=== PATIENT | female | born 1985 | race Two or more races ===

== ENCOUNTER 2024-08-03 07:28 | Emergency (ER) | payer MEDICARE, MEDICAID, SELFPAY ==
[2024-08-03 07:29] VITALS: BMI 39.3
[2024-08-03 07:38] VITALS: BP 136/82; PULSE 99; RESP 19; TEMP 36.7; O2SAT 99; BMI 38.4
--- NOTE | 2024-08-03 07:42 | XR_ITS ---
Examination: Lumbar spine 3 views Technique one AP lateral coned lateral lower lumbar spine 3 views Exam date and time: August 03, 2024 0937 hrs. Indications: Lower back pain one week. Findings: Adequate alignment lumbar vertebral bodies No lumbar fracture Minimal disc narrowing L4-L5 No spondylolisthesis Impression: Minimal disc narrowing L4-L5
--- NOTE | 2024-08-03 08:17 | EDNOTE_ITS ---
ED Abdominal Pain RME/HPI General Chief Complaint: Abdominal Pain Stated complaint: LOWER BACK PAIN RADIATING DOWN WITH FREQUENT URINA Time seen by provider: 08/03/24 07:29 Arrival date/time: 08/03/24 07:28 39-year-old female presents to the emergency department with complaints of lumbar lower back pain worsening over 3 days. Does report history of a fracture of her lumbar spine approximately 9 years ago. Patient is requesting a pain shot has not followed up with PCP regarding lower back pain issue. States she has been having pain for the last 3 days however also complaining of mild dysuria and increased urinary frequency. Limitations: no limitations Related Data Previous Rx's ?Medication ?Instructions ?Recorded albuterol sulfate 90 mcg/actuation 2 puff inhalation QID #18 grams 06/30/20 aerosol inhaler azithromycin 250 mg tablet See Rx Instructions PO .COMPLEX #6 06/30/20 tabs promethazine 6.25 mg-codeine 10 5 ml PO Q6H #120 mL 06/30/20 mg/5 mL syrup naproxen 500 mg tablet (Naprosyn) 500 mg PO BID #30 tabs 01/06/22 ondansetron HCl 4 mg tablet 4 mg PO BID PRN nausea and 01/06/22 vomiting #20 tabs azelastine 137 mcg (0.1 %) nasal 2 spray intranasal QDAY #30 mL 02/26/22 spray acetaminophen 500 mg tablet 1,000 mg (2 x 500 mg) PO Q6H PRN 10/24/22 (Tylenol Extra Strength) fever or pain #30 tabs ondansetron HCl 4 mg tablet 4 mg PO TID PRN nausea and 10/24/22 vomiting #14 tabs ibuprofen 600 mg tablet 600 mg PO TID PRN pain #10 tabs 11/23/22 ondansetron 4 mg disintegrating 4 mg PO Q8H PRN nausea and 02/08/24 tablet vomiting #30 tabs gabapentin 100 mg capsule 100 mg PO TID PRN nerve pain #20 08/03/24 caps gabapentin 100 mg capsule 100 mg PO TID PRN nerve pain #20 08/03/24 caps naproxen 500 mg tablet (Naprosyn) 500 mg PO BID PRN pain #20 tabs 08/03/24 naproxen 500 mg tablet,delayed 500 mg PO BID PRN pain #20 tabs 08/03/24 release Allergies Allergy/AdvReac Type Severity Reaction Status Date / Time Penicillins Allergy Severe Hives Verified 08/03/24 07:31 Review of Systems Review of Systems Systems Reviewed: All systems reviewed, normal except as documented Narrative Review of Systems: Gen: No fever, no chills, no weight loss EYES: No discharge, no visual changes, no pain HEENT: No ear pain, no congestion, no sore throat PULM: No shortness of breath, no cough, no congestion CV: No chest pain, no dyspnea on exertion, no palpitations GI: No nausea, no vomiting, no diarrhea, no pain, no constipation : + frequency, no urgency,? +dysuria Musc/skel: No joint pain, +lumbar back pain Skin: No rash? Psyc: No hallucinations, no depression Heme/Lymph: No easy bleeding or bruising tendencies Neuro: No weakness, no headache ED Exam General Limitations: Present no limitations General appearance: Present alert and in no apparent distress Head Head exam: Present atraumatic Eye Eye exam: Present normal appearance, PERRL and EOMI ENT ENT exam: Present normal exam, normal oropharynx and mucous membranes moist Neck Neck exam: Present normal inspection, full ROM and trachea midline Chest Chest inspection: Present normal inspection and symmetric chest wall rise Respiratory Respiratory exam: Present normal lung sounds bilaterally Cardiovascular Cardiovascular exam: Present regular rate, normal rhythm and normal heart sounds Abdominal Exam Abdominal exam: Present soft and normal bowel sounds Extremities Exam Extremities exam: Present normal inspection and full ROM Back Exam Back exam: Present normal inspection and full ROM Neurological Exam Neurological exam: Present alert, oriented X3 and CN II-XII intact Psychiatric Psychiatric exam: Present normal affect and normal mood Skin Skin exam: Present warm, dry, intact and normal color Course Quality Measures none Orders Category Date Time Status XR lumbar spine 2-3V Stat Exams 08/03/24 07:42 Completed HCG Qualitative,Urine Stat Lab 08/03/24 07:53 Completed Urinalysis Stat Lab 08/03/24 07:53 Completed Urine Culture Stat Lab 08/03/24 07:53 Received Ketorolac Inj [Toradol Inj] Med 08/03/24 09:31 Discontinued 60 mg IM X1 ONE Vital Signs Vital signs: Vital Signs Temperature 98.1 F 08/03/24 07:38 Pulse Rate 99 08/03/24 07:38 Respiratory Rate 19 08/03/24 07:38 Blood Pressure 136/82 H 08/03/24 07:38 Pulse Oximetry (%) 99 08/03/24 07:38 Oxygen Delivery Method Room Air 08/03/24 07:38 Abdominal Pain MDM MDM Narrative MDM Narrative:: 39-year-old female presents to the emergency department with complaints of lumbar lower back pain worsening over 3 days. Does report history of a fracture of her lumbar spine approximately 9 years ago. Patient is requesting a pain shot has not followed up with PCP regarding lower back pain issue. States she has been having pain for the last 3 days however also complaining of mild dysuria and increased urinary frequency. Pain medication provided for patient x-ray demonstrates some degenerative disc disease from L5-S1 No fever, weakness, abdominal pain, saddle anesthesia, bowel/bladder incon tinence noted. No hx of IVDA. Gait and sensation intact. No signs of emergent pathology at this time. Low suspicion for emergent etiology such as epidural abscess or spinal cord compression/cauda equina. urinalysis was negative for any pyuria. Advised patient this is a chronic issue for 10 years she should follow-up with her PCP for outpatient MRI and physical therapy which she has had in the past. Patient data External records reviewed:: [facility] previous records Clinical information provided by:: patient Social determinants that could affect healthcare access:: none Patient has the following chronic illnesses:: no How is presenting disease/condition affected by chronic disease/condition?: no chronic disease Evaluation data The following diagnostics were reviewed and interpreted by me:: lab results and radiology exam(s) Lab and/or radiology exams considered but not ordered:: no Interpretation Summary: Exam date and time: August 03, 2024 0937 hrs. Indications: Lower back pain one week. Findings: Adequate alignment lumbar vertebral bodies No lumbar fracture Minimal disc narrowing L4-L5 No spondylolisthesis Impression: Minimal disc narrowing L4-L5 Medications / Prescriptions Medications or Prescriptions considered but not ordered:: no Medication administrations:: Medication Administration History Discontinued Medications Ketorolac Tromethamine (Ketorolac Inj 60 Mg/2 Ml Vial) 60 mg IM X1 ONE Stop: 08/03/24 09:32 Last Admin: 08/03/24 09:44 Dose: 60 mg Documented By: GM All medications administered and effective Consultations Consultation(s) initiated? (list below): No Diagnosis Differential diagnosis abdominal pain: abdominal pain, constipation, gastroenteritis and other (UTI, Lumbar Degenerative disk ) Most likely diagnosis given after review of the tests above:: Lumbar Degenerative disk , chronic back pain Admission Indicated Admission indicated?: not indicated Admission Request Was there a request for admission?: No Disposition Plan Disposition Plan: Discharge Discharge Attestation Discharge Attestation: The patient and all family members were given an opportunity to ask questions and understood the discharge instructions. Discharge instructions specifically effects, indications for sooner follow up or return to the emergency department, and the expected course of current diagnosis. Patient condition: Stable Discharge Plan Plan Patient Disposition: HOME (Self Care) Patient condition on transfer: Stable Prescriptions/Referrals Prescriptions/Med Rec: New naproxen 500 mg tablet,delayed release (DR/EC) 500 mg PO BID PRN (Reason: pain) Qty: 20 0RF gabapentin 100 mg capsule 100 mg PO TID PRN (Reason: nerve pain ) Qty: 20 0RF gabapentin 100 mg capsule 100 mg PO TID PRN (Reason: nerve pain) Qty: 20 0RF naproxen [Naprosyn] 500 mg tablet 500 mg PO BID PRN (Reason: pain) Qty: 20 0RF No Action naproxen [Naprosyn] 500 mg tablet 500 mg PO BID Qty: 30 0RF ondansetron HCl 4 mg tablet 4 mg PO BID PRN (Reason: nausea and vomiting) Qty: 20 0RF azelastine 137 mcg (0.1 %) aerosol,spray 2 spray intranasal QDAY Qty: 30 0RF Rx Instructions: administer into each nostril azithromycin 250 mg tablet See Rx Instructions .ROUTE .COMPLEX Qty: 6 0RF Rx Instructions: take 500 mg today (day 1), then 250 mg for 4 days (days 2-5) albuterol sulfate 90 mcg/actuation HFA aerosol inhaler 2 puff inhalation QID Qty: 18 0RF promethazine-codeine 6.25-10 mg/5 mL syrup 5 ml PO Q6H Qty: 120 0RF acetaminophen [Tylenol Extra Strength] 500 mg tablet 1,000 mg PO Q6H PRN (Reason: fever or pain) Qty: 30 0RF ondansetron HCl 4 mg tablet 4 mg PO TID PRN (Reason: nausea and vomiting) Qty: 14 0RF ibuprofen 600 mg tablet 600 mg PO TID PRN (Reason: pain) Qty: 10 0RF ondansetron 4 mg tablet,disintegrating 4 mg PO Q8H PRN (Reason: nausea and vomiting) Qty: 30 0RF Referrals: Vickie Rosen PA-C [Primary Care Provider] - In 1 week Problem List Clinical Impression: Lumbar back pain Patient/Caregiver Discharge Instructions Discharge Activity: activity as tolerated Education Materials: ED Back Pain (Acute or Chronic) Additional Instructions: -Your urinalysis is normal -You will need to rest and have activities modification avoid heavy lifting twisting motions or prolonged sitting or standing. -Will need to follow-up with your doctor in 2 to 3 days for follow-up care Might need physical therapy Might need referral for MRI outpatient, Diagnostic imaging (like MRI) might be used to assess the extent of the bulging disc, particularly if symptoms worsen or persist. -Medications sent please use as directed Can include ibuprofen, gabapentin Lifestyle modifications weight reduction Return to the emergency department this any worsening symptoms change in condition. Print Language: Lithuanian Stand Alone Forms: Irish Award Info., Patient Portal Info Letter Attestation Attestation The patient was seen by the midlevel practitioner. I, the co-signing physician, was present during the entire ER visit. While I did not physically examine the patient, I was available for consultation as needed.
[2024-08-03 09:00] LABS: Collection Type, Urine Clean Catch
[2024-08-03 09:11] LABS: Bilirubin,Urine Negative (Negative); Blood,Urine Negative (Negative); Clarity,Urine Clear (Clear/Hazy); Color,Urine Lt-Yellow (Lt Yel-Yel); Glucose, Urine Negative (Negative); Ketones,Urine Negative (Negative); Leukocyte Esterase,Urine Negative (Negative); Nitrite,Urine Negative (Negative); PH,Urine 5.5 (5.0-7.0); Protein,Urine Negative (Neg - Trace); RBC,Urine < 1 /hpf (0-3); Squamous Epithelial Cell,Urine 1 /hpf (0-5); Urobilinogen,Urine Negative mg/dL (0.0-1.0); WBC,Urine 1 /hpf (0-5)
[2024-08-03 09:12] LABS: HCG Qualitative,Urine Negative
[2024-08-03] MEDS: KETOROLAC INJ 60 MG/2 ML VIAL IM (09:44)
[2024-08-03 09:48] VITALS: BP 119/84; PULSE 90; RESP 17; TEMP 37.1; O2SAT 95
[2024-08-03 11:18] VITALS: BP 137/91; PULSE 93; RESP 17; TEMP 37; O2SAT 99
== END 2024-08-03 11:18 | disposition home or self-care (01) ==
PROVIDERS: Nurse Practitioner Primary Care; Emergency Provider Emergency Medicine; PCP Physician Assistant
DX: M48.061 Spinal stenosis, lumbar region without neurogenic claudication (principal)
CPT/HCPCS: 72100; 81001; 81025; 87086; 96372; 99283; J1885

== ENCOUNTER 2024-12-14 18:55 | Emergency (ER) | payer MEDICARE, SELFPAY ==
[2024-12-14 18:56] VITALS: BMI 39.9
--- NOTE | 2024-12-14 19:00 | EKG_ITS ---
[facility] Test Date: 2024-12-14 Pat Name: BEATRIZ OLGUIN Department: Room: - Gender: Female Assistant Foreman: : 1985 Requested By: ED Temporary Provider Order Number: [id number] Reading MD: ED Temporary Provider Measurements Intervals [place] Rate: 101 P: 40 NH: 124 QRS: 84 QRSD: 100 T: 55 QT: 324 QTc: 420 Interpretive Statements SINUS TACHYCARDIA ABNORMAL RHYTHM ECG Compared to ECG 04/07/2024 15:02:12 No significant changes /store/S0/[id number].pdf
[2024-12-14 19:14] VITALS: BP 123/83; PULSE 86; RESP 18; TEMP 37.1; O2SAT 96
--- NOTE | 2024-12-14 19:16 | XR_ITS ---
Examination: PA lateral chest 2 views Technique: Upright PA lateral chest 2 views Exam date and time: December 14, 20242 hrs. Indications: Chest pain beginning 3 days ago. Findings: Normal heart size Mild opacity left base Intact osseous structures Impression: Mild left base pneumonia
--- NOTE | 2024-12-14 19:17 | PD.EDRME ---
Rapid Medical Screening Exam E Arrival date/time: 12/14/24 18:55 39 yo f present to ED for c/o chest pain for 3 days I have greeted and performed a focused initial assessment of this patient. A comprehensive ED assessment and evaluation of the patient, analysis of all test results, and completion of the medical decision making process will be conducted by additional ED providers. Chief Complaint: Chest Pain Time Seen by Provider: 12/14/24 18:58 Vital signs: Vital Signs Temperature 98.8 F 12/14/24 19:14 Pulse Rate 86 12/14/24 19:14 Respiratory Rate 18 12/14/24 19:14 Blood Pressure 123/83 12/14/24 19:14 Pulse Oximetry (%) 96 12/14/24 19:14 Oxygen Delivery Method Room Air 12/14/24 19:14
[2024-12-14 19:38] LABS: Basophils % (Auto) 1 % (0-2.5); Eosinophils # (Auto) 0.1 Thou/mm3 (0.0-0.5); Eosinophils % (Auto) 2 % (0-10); Hematocrit 41.2 % (36.0-46.0); Hemoglobin 13.7 g/dL (12.0-16.0); Immature Granulocytes % (Auto) 0 % (0-0); Immature Granulocytes Auto 0.01 Thou/mm3 (0.00-0.00); Lymphocytes # (Auto) 2.3 Thou/mm3 (1.0-4.8); Lymphocytes % (Auto) 33 % (10-50); Mean Corpuscular HGB Conc 33.3 g/dl (31.0-37.0); Mean Corpuscular Hemoglobin 28.7 pg (25.0-35.0); Mean Corpuscular Volume 86 fL (80-100); Monocytes # (Auto) 0.6 Thou/mm3 (0.0-0.8); Monocytes % (Auto) 9 % (0-12); Neutrophils % (Auto) 56 % (37-80); Nucleated Red Blood Cell % 0 /100 WBC (0); Platelet Count 271 Thou/mm3 (140-440); RDW Standard Deviation 39.9 fL (36.4-46.3); Red Blood Count 4.78 Miln/mm3 (4.00-5.20); White Blood Count 7.1 Thou/mm3 (3.6-11.0)
[2024-12-14 20:03] LABS: HCG,Qualitative Serum Negative
[2024-12-14 20:11] LABS: Alanine Aminotransferase 11 U/L (10-49); Albumin, Serum 4.5 gm/dL (3.5-5.0); Albumin/Globulin Ratio 1.3 (1.2-2.2); Alkaline Phosphatase 65 U/L (46-116); Anion Gap 7 (7-16); Aspartate Amino Transferase 15 U/L (0-34); BUN/Creatinine Ratio 13 Ratio (12-20); Bilirubin,Total 0.3 mg/dL (0.3-1.2); Blood Urea Nitrogen 10 mg/dL (9-23); Calcium 9.4 mg/dL (8.3-10.6); Calcium (Corrected) 9.4 mg/dL (8.5-10.1); Carbon Dioxide 29.3 mMol/L (20.0-31.0); Chloride 105 mMol/L (98-107); Creatinine (Component) 0.8 mg/dL (0.6-1.3); Estimated Creatinine Clearance 103.8 mL/min (>60); Globulin 3.5 gm/dL (2.3-3.5); Glucose 124 mg/dL (74-106); Lipase 43 U/L (12-53); Osmolality,Calculated 281 (275-295); Sodium 141 mMol/L (136-145); Troponin I < 0.002 ng/mL (0.0-0.045); eGFR > 60 See Note
--- NOTE | 2024-12-14 21:35 | PRELIM_ITS ---
Radiographs of the chest (2 views). December 14, 2024 at 2031 hours Clinical history: Chest pain Comparison: No prior study is available for comparison. Findings: The heart, mediastinum and pulmonary fredis are unremarkable. Left basal consolidation. There is no pleural effusion. The bony thorax is unremarkable. No pneumothorax. Impression: Left basal pneumonia. Report Electronically Signed By: Hossein Bray 12/14/2024 9:34:48 PM [EST]
--- NOTE | 2024-12-14 22:01 | PD.EDSOB ---
ED SOB =RME/HPI General Chief Complaint: Chest Pain Stated Complaint: CHEST PAIN DOWN L) ARM X 2 DAYS, DYSPNEA Time Seen by Provider: 12/14/24 18:58 Arrival date/time: 12/14/24 18:55 39 year old female present to emergency room with c/o of chest pain, shortness of breath for 2-3 days LOCATION: Chest SEVERITY: Symptoms are described as being severe with limitations on activities of daily living CONTEXT: The patient is unable to identify any inciting events. DURATION/TIMING: The symptoms started approximately [one day] ago and have been constant since and have been progressive getting worse. ASSOCIATED SYMPTOMS: The patient is unable to identify any other associated symptoms. MODIFYING FACTORS: The patient is unable to identify any alleviating or aggravating symptoms. PERTINENT ROS: no fevers, no cough, no pleuritic pain, no ripping or tearing sensations, denies any lower extremity edema and no unilateral swelling, no nausea,vomiting, diarrhea, no dizziness/headache no rash no loc/syncope episode no abd/back pain no dsyuria,urgency,frequency REVIEW OF SYSTEMS: See History of Present Illness - with the exception of those mentioned in the history of present illness, all other systems reviewed and reported as negative GENERAL: In general the patient is awake, interactive, in an emergency department gurney. HEAD/EYES/EARS/NOSE/THROAT: normo-cephalic, atraumatic, mucus membranes are moist, anicteric, palpebral conjunctiva is pink, trachea is midline. CARDIOVASCULAR: regular rate and regular rhythm, no murmurs, heart sounds are not distant, strong pulses in all four extremities that are equal and symmetric bilateral upper and lower extremities, normal capillary refill. CHEST/PULMONARY: normal chest rise and fall, good air movement, clear to auscultation bilaterally, normal inspiratory to expiratory ratios without evidence of respiratory distress. NECK: No midline/Paraspinal tenderness, no step off ROM/Strenght intact No Kernig and bruzinski sign. No trauma ABDOMEN: soft, not tender, no masses appreciated BACK: normal range of motion without pain. NEUROLOGICAL: cranio-facial features are symmetric, moves all four extremities equally without obvious limitations or weakness. EXTREMITY: no tenderness to palpation over the long bones or large joints of the bilateral upper and lower extremities, no joint swelling, no joint erythema, no signs of trauma, no unilateral leg swelling and no peripheral edema. SKIN: warm, dry, well-perfused, no jaundice, no rash, no telangiectasias or petechia. PSYCH: calm, cooperative, no evidence of psychosis or agitation RME / HPI RME / HPI Narrative: 12/14/24 18:55 39 yo f present to ED for c/o chest pain for 3 days I have greeted and performed a focused initial assessment of this patient. A comprehensive ED assessment and evaluation of the patient, analysis of all test results, and completion of the medical decision making process will be conducted by additional ED providers. Related Data Previous Rx's ?Medication ?Instructions ?Recorded albuterol sulfate 90 mcg/actuation 2 puff inhalation QID #18 grams 06/30/20 aerosol inhaler azithromycin 250 mg tablet See Rx Instructions PO .COMPLEX #6 06/30/20 tabs promethazine 6.25 mg-codeine 10 5 ml PO Q6H #120 mL 06/30/20 mg/5 mL syrup naproxen 500 mg tablet (Naprosyn) 500 mg PO BID #30 tabs 01/06/22 ondansetron HCl 4 mg tablet 4 mg PO BID PRN nausea and 01/06/22 vomiting #20 tabs azelastine 137 mcg (0.1 %) nasal 2 spray intranasal QDAY #30 mL 02/26/22 spray acetaminophen 500 mg tablet 1,000 mg (2 x 500 mg) PO Q6H PRN 10/24/22 (Tylenol Extra Strength) fever or pain #30 tabs ondansetron HCl 4 mg tablet 4 mg PO TID PRN nausea and 10/24/22 vomiting #14 tabs ibuprofen 600 mg tablet 600 mg PO TID PRN pain #10 tabs 11/23/22 ondansetron 4 mg disintegrating 4 mg PO Q8H PRN nausea and 02/08/24 tablet vomiting #30 tabs gabapentin 100 mg capsule 100 mg PO TID PRN nerve pain #20 08/03/24 caps gabapentin 100 mg capsule 100 mg PO TID PRN nerve pain #20 08/03/24 caps naproxen 500 mg tablet (Naprosyn) 500 mg PO BID PRN pain #20 tabs 08/03/24 naproxen 500 mg tablet,delayed 500 mg PO BID PRN pain #20 tabs 08/03/24 release azithromycin 500 mg tablet 500 mg PO QDAY 3 days #3 tabs 12/14/24 Allergies Allergy/AdvReac Type Severity Reaction Status Date / Time Penicillins Allergy Severe Hives Verified 12/14/24 18:58 Course Course Course Narrative: Patient presenting with cough and fever.? VS were reviewed and showed wnl .? ?Lung exam noted to have clear .? Obtained and reviewed CXR, which showed + pna .? ?At this time, it is felt that the most likely explanation for the patient's symptoms is pneumonia.? I also considered URI, bronchitis, pneumonia, pneumothorax, PE, but this appears less likely considering the data gathered thus far.? Patient was provided azithromycin while in the ED.? .? Supportive treatment options were discussed.? Patient to follow up with PCP closely.?? Impression:?? Community acquired pneumonia Plan:? Prescribed azithromycin 500mg daily for 3 days? Advised Pt on supportive measures, including smoking cessation and avoidance of second-hand smoke, OTC acetaminophen or ibuprofen for fever and body aches, advancement of fluids as tolerated, rest, and frequent hand-washing w/ soap and water. Instructed Pt to monitor for shaking chills or T>100.5degF, persistent cough >7-10d, hemoptysis, delirium or confusion, cyanosis, and respiratory distress.? Instructed Pt to f/up w/ PCP or ETC should Sx worsen or not improve.? Quality Measures none Orders Category Date Time Status EKG (ED ONLY) *Do not use* NOW Care 12/14/24 19:00 Completed EKG (ED Only) Stat Exams 12/14/24 19:00 Draft XR chest 2V Stat Exams 12/14/24 19:16 Taken CBC Stat Lab 12/14/24 19:27 Completed CMP [Comprehensive Metabolic Panel] Stat Lab 12/14/24 19:27 Completed HCG,Qualitative Serum Stat Lab 12/14/24 19:27 Completed Lipase Stat Lab 12/14/24 19:27 Completed Troponin I Stat Lab 12/14/24 19:27 Completed Azithromycin Po [Zithromax PO] Med 12/14/24 21:59 Discontinued 500 mg PO X1 ONE Ibuprofen Tab [Motrin Tab] Med 12/14/24 22:06 Once 800 mg PO X1 ONE Vital Signs Vital signs: Vital Signs Temperature 98.8 F 12/14/24 19:14 Pulse Rate 86 12/14/24 19:14 Respiratory Rate 18 12/14/24 19:14 Blood Pressure 123/83 12/14/24 19:14 Pulse Oximetry (%) 96 12/14/24 19:14 Oxygen Delivery Method Room Air 12/14/24 19:14 Procedures -ED EKG Interpretation #1: Date of EK12/14/24 Rate: 101 Interpretation: Reviewed by me EKG Impression: No acute ST-T changes, No ectopy, No ischemic changes and Sinus tachycardia Shortness of Breath / Dyspnea Patient data External records reviewed:: [facility] previous records Clinical information provided by:: patient Social determinants that could affect healthcare access:: none Patient has the following chronic illnesses:: n/a How is presenting disease/condition affected by chronic disease/condition?: no chronic disease Evaluation data The following diagnostics were reviewed and interpreted by me:: lab results, radiology exam(s) and EKG tracing(s) Lab and/or radiology exams considered but not ordered:: n/a Interpretation Summary: xray: pna cbc/cmp trop wnl Medications / Prescriptions Medications or Prescriptions considered but not ordered:: n/a Medication administrations:: Medication Administration History Ibuprofen (Ibuprofen Tab 400 Mg Tablet) 800 mg PO X1 ONE Stop: 12/14/24 22:07 Discontinued Medications Azithromycin (Azithromycin 250 Mg Tablet) 500 mg PO X1 ONE Stop: 12/14/24 22:00 Last Admin: 12/14/24 22:04 Dose: 500 mg Documented By: KG as stated above Consultations Consultation(s) initiated? (list below): No Diagnosis Shortness of Breath Differential Diagnosis: acute exacerbation of chronic obstructive airways disease, congestive heart failure, community acquired pneumonia, asthma with exacerbation and other (anxiety, mi/nstemi ) Most likely diagnosis given after review of the tests above:: pna Admission Indicated Admission indicated?: not indicated Admission Request Was there a request for admission?: No Disposition Plan Disposition Plan: Discharge Discharge Attestation Discharge Attestation: The patient and all family members were given an opportunity to ask questions and understood the discharge instructions. Discharge instructions specifically effects, indications for sooner follow up or return to the emergency department, and the expected course of current diagnosis. Patient condition: Stable Discharge Plan Plan Patient Disposition: HOME (Self Care) Health Concerns: Follow with PMD as directed Take tylenol or motrin as need Return to ED if sx worsen Prescriptions/Referrals Prescriptions/Med Rec: New azithromycin 500 mg tablet 500 mg PO QDAY 3 Days Qty: 3 0RF No Action naproxen [Naprosyn] 500 mg tablet 500 mg PO BID Qty: 30 0RF ondansetron HCl 4 mg tablet 4 mg PO BID PRN (Reason: nausea and vomiting) Qty: 20 0RF azelastine 137 mcg (0.1 %) aerosol,spray 2 spray intranasal QDAY Qty: 30 0RF Rx Instructions: administer into each nostril azithromycin 250 mg tablet See Rx Instructions .ROUTE .COMPLEX Qty: 6 0RF Rx Instructions: take 500 mg today (day 1), then 250 mg for 4 days (days 2-5) albuterol sulfate 90 mcg/actuation HFA aerosol inhaler 2 puff inhalation QID Qty: 18 0RF promethazine-codeine 6.25-10 mg/5 mL syrup 5 ml PO Q6H Qty: 120 0RF naproxen 500 mg tablet,delayed release (DR/EC) 500 mg PO BID PRN (Reason: pain) Qty: 20 0RF gabapentin 100 mg capsule 100 mg PO TID PRN (Reason: nerve pain ) Qty: 20 0RF gabapentin 100 mg capsule 100 mg PO TID PRN (Reason: nerve pain) Qty: 20 0RF naproxen [Naprosyn] 500 mg tablet 500 mg PO BID PRN (Reason: pain) Qty: 20 0RF acetaminophen [Tylenol Extra Strength] 500 mg tablet 1,000 mg PO Q6H PRN (Reason: fever or pain) Qty: 30 0RF ondansetron HCl 4 mg tablet 4 mg PO TID PRN (Reason: nausea and vomiting) Qty: 14 0RF ibuprofen 600 mg tablet 600 mg PO TID PRN (Reason: pain) Qty: 10 0RF ondansetron 4 mg tablet,disintegrating 4 mg PO Q8H PRN (Reason: nausea and vomiting) Qty: 30 0RF Referrals: Vickie Rosen PA-C [Primary Care Provider] - In 1 week Problem List Clinical Impression: Pneumonia Patient/Caregiver Discharge Instructions Education Materials: ED Pneumonia (Adult) Print Language: Estonian Stand Alone Forms: Irish Award Info., Patient Portal Info Letter
[2024-12-14] MEDS: AZITHROMYCIN 250 MG TABLET 500 MG PO (22:04)
[2024-12-14] MEDS: IBUPROFEN TAB 400 MG TABLET 800 MG PO (22:17)
== END 2024-12-14 22:30 | disposition home or self-care (01) ==
PROVIDERS: Physician Assistant; Emergency Provider Emergency Medicine; PCP Physician Assistant
DX: J18.9 Pneumonia, unspecified organism (principal); R00.0 Tachycardia, unspecified; Z88.0 Allergy status to penicillin
CPT/HCPCS: 36415; 71046; 80053; 83690; 84484; 84703; 85025; 93005; 99283; A9270

== ENCOUNTER 2025-01-06 19:55 | Emergency (ER) | payer MEDICARE, MEDICAID, SELFPAY ==
[2025-01-06 19:56] VITALS: BMI 45.7
[2025-01-06 20:30] VITALS: BP 129/87; PULSE 100; RESP 18; TEMP 37.1; O2SAT 97
--- NOTE | 2025-01-06 21:01 | EDNOTE_ITS ---
ED General RME/HPI General Chief complaint: Chest Pain Stated complaint: CHEST PAIN X1 MONTH Time Seen by Provider: 01/06/25 20:56 Arrival date/time: 01/06/25 19:55 CC: Chest pain left anterior with radiation in the left arm. Onset 3 to 4 days ago. Patient has been dealing with this chest pain for 2 prior visits 1 in this hospital another and another outlying hospital initially diagnosed with pneumonia put on antibiotics with no relief. Patient admits that the pain is reproducible with palpation the radiation in the arm is not reproducible with palpation patient denies cough fever chills nausea vomiting headache shortness of breath or difficulty breathing. Patient had no relief with meloxicam. Patie nt is awake alert oriented not in any acute distress. Related Data Previous Rx's ?Medication ?Instructions ?Recorded albuterol sulfate 90 mcg/actuation 2 puff inhalation Q ID #18 grams 06/30/20 aerosol inhaler azithromycin 250 mg tablet See Rx Instructions PO .COM PLEX #6 06/30/20 tabs promethazine 6.25 mg-codeine 10 5 ml PO Q6H #120 mL mg/5 mL syrup naproxen 500 mg tablet (Naprosyn) 500 mg PO BID #30 ta bs 01/06/22 ondansetron HCl 4 mg tablet 4 mg PO BID PRN nausea and 01/06/22 vomiting #20 tabs azelastine 137 mcg (0.1 %) nasal 2 spray intranasal QD AY #30 mL 02/26/22 spray acetaminophen 500 mg tablet 1,000 mg (2 x 500 mg) PO Q 6H PRN 10/24/22 (Tylenol Extra Strength) fever or pain #30 tabs ondansetron HCl 4 mg tablet 4 mg PO TID PRN nausea and 10/24/22 vomiting #14 tabs ibuprofen 600 mg tablet 600 mg PO TID PRN pain #10 t abs 11/23/22 ondansetron 4 mg disintegrating 4 mg PO Q8H PRN nausea and 02/08/24 tablet vomiting #30 tabs gabapentin 100 mg capsule 100 mg PO TID PRN nerve pain #20 08/03/24 caps gabapentin 100 mg capsule 100 mg PO TID PRN nerve pain #20 08/03/24 caps naproxen 500 mg tablet (Naprosyn) 500 mg PO BID PRN pa in #20 tabs 08/03/24 naproxen 500 mg tablet,delayed 500 mg PO BID PRN pain #20 tabs 08/03/24 release cyclobenzaprine 10 mg tablet 10 mg PO BID #14 tabs 02/25 Allergies Allergy/AdvReac Type Severity Reaction Status Date / Time Penicillins Allergy Severe Hives Verified 12/14/24 18:58 Review of Systems Review of Systems Narrative Review of Systems: GEN: No fever, no chills, no weight loss EYES: No discharge, no visual changes, no pain HEENT: No ear pain, no congestion, no sore throat PULM: No shortness of breath, no cough, no congestion CV: No chest pain, no dyspnea on exertion, no palpitations GI: No nausea, no vomiting, no diarrhea, no pain, no constipation : No frequency, no urgency, no dysuria MUSC/SKEL: No joint pain, no back pain SKIN: No rash PSYCH: No hallucinations, no depression HEME/LYMPH: No easy bleeding or bruising tendencies NEURO: No weakness, no headache Past Medical History Past Medical History NEUROLOGIC: Negative Neurological Disorders CARDIAC: Negative Cardiac Disorders or Congestive Heart Failure RESPIRATORY: Negative Chronic Obstructive Pulmonary Disease (COPD) or Asthma GASTROINTESTINAL: Negative Gastrointestinal Disorders GENITOURINARY: Negative Genitourinary Disorders or Renal Disease REPRODUCTIVE: Negative Breast Cancer MUSCULOSKELETAL: Negative Musculoskeletal Disorders ENDOCRINE: Positive Diabetes Mellitus Type 2; Negative Diabetes Mellitus Type 1 HEMATOLOGIC: Negative Sickle Cell Disease OTHER HISTORY: Negative Breast Cancer Surgical History SURGICAL: Positive Section Social History SMOKING STATUS: Never smoker ED Exam Narrative Physical exam: [General: Obese mild discomfort but not in any acute distress Head normocephalic HEENT: Within acceptable limits Neck is supple nontender Chest equal chest rise, all chest pain reproducible with palpation of the left anterior chest, from the costal sternal border left side laterally to the axilla. No pain with palpation of the left arm. Respiratory: Clear to auscultation no wheezes crackles or rubs CV: Rate rhythm is regular no murmurs rubs or clicks Abdomen is distended secondary to body habitus soft nontender no masses positive bowel sounds all 4 quadrants Back: No CVA tenderness no spinous process tenderness from cervical spine thoracic and lumbar spine Skin: Intact no petechiae rash induration ulceration or crepitus Extremities: Moving all extremity against resistance cap refill less than 2 seconds neurosensory intact Neuro: Awake alert oriented x3 Glascow coma 15 no focal deficits] Course Quality Measures none Orders Category Date Time Status XR chest 2V Stat Exams 01/06/25 20:16 Stop Req Vital Signs Vital signs: Vital Signs Temperature 98.8 F 01/06/25 20:30 Pulse Rate 100 01/06/25 20:30 Respiratory Rate 18 01/06/25 20:30 Blood Pressure 129/87 H 01/06/25 20:30 Pulse Oximetry (%) 97 01/06/25 20:30 Oxygen Delivery Method Room Air 01/06/25 20:30 Discharge Plan Plan Patient Disposition: HOME (Self Care) Patient condition on transfer: Stable Prescriptions/Referrals Prescriptions/Med Rec: New cyclobenzaprine 10 mg tablet 10 mg PO BID Qty: 14 0RF No Action naproxen [Naprosyn] 500 mg tablet 500 mg PO BID Qty: 30 0RF ondansetron HCl 4 mg tablet 4 mg PO BID PRN (Reason: nausea and vomiting) Qty: 20 0RF azelastine 137 mcg (0.1 %) aerosol,spray 2 spray intranasal QDAY Qty: 30 0RF Rx Instructions: administer into each nostril azithromycin 250 mg tablet See Rx Instructions .ROUTE .COMPLEX Qty: 6 0RF Rx Instructions: take 500 mg today (day 1), then 250 mg for 4 days (days 2-5) albuterol sulfate 90 mcg/actuation HFA aerosol inhaler 2 puff inhalation QID Qty: 18 0RF promethazine-codeine 6.25-10 mg/5 mL syrup 5 ml PO Q6H Qty: 120 0RF naproxen 500 mg tablet,delayed release (DR/EC) 500 mg PO BID PRN (Reason: pain) Qty: 20 0RF gabapentin 100 mg capsule 100 mg PO TID PRN (Reason: nerve pain ) Qty: 20 0RF gabapentin 100 mg capsule 100 mg PO TID PRN (Reason: nerve pain) Qty: 20 0RF naproxen [Naprosyn] 500 mg tablet 500 mg PO BID PRN (Reason: pain) Qty: 20 0RF acetaminophen [Tylenol Extra Strength] 500 mg tablet 1,000 mg PO Q6H PRN (Reason: fever or pain) Qty: 30 0RF ondansetron HCl 4 mg tablet 4 mg PO TID PRN (Reason: nausea and vomiting) Qty: 14 0RF ibuprofen 600 mg tablet 600 mg PO TID PRN (Reason: pain) Qty: 10 0RF ondansetron 4 mg tablet,disintegrating 4 mg PO Q8H PRN (Reason: nausea and vomiting) Qty: 30 0RF Problem List Clinical Impression: Chest wall pain Patient/Caregiver Discharge Instructions Education Materials: ED Chest Pain, Noncardiac Additional Instructions: Try Salonpas patches Lidoderm patches IcyHot or similar applications to your skin to help with temporary relief take the medication as needed for temporary relief if there is a worsening of symptoms follow-up with your primary care provider. Print Language: Bulgarian Stand Alone Forms: Irish Award Info., Patient Portal Info Letter, Work/School Release PA/BORING MACHINE OPERATOR HORIZONTAL Supervising Physician PA/BORING MACHINE OPERATOR HORIZONTAL Supervising Physician: Rivas Griggs ENP MDM Clinical Information Provided by: patient Medical Records reviewed [facility] Meds/Rx considered, not ordered None Labs/Rad/Tests considered, not ordered None Chronic Illness/Social Conditions which may negatively complicate care or outcome(s)-explain: None or not applicable EKG EKG not done Labs Labs: none Medication Administration(s) none Diagnosis Differential Diagnosis ED Complaint MDM: Pneumonia pleuritic chest wall pain muscle strain
[2025-01-06] MEDS: KETOROLAC INJ 60 MG/2 ML VIAL 30 MG IM (21:16)
== END 2025-01-06 21:56 | disposition home or self-care (01) ==
LOC: SERX 22:04
PROVIDERS: Emergency Provider Emergency Medicine; PCP Physician Assistant
DX: R07.89 Other chest pain (principal)
CPT/HCPCS: 96372; 99283; J1885

== ENCOUNTER → 2025-01-30 | Outpatient (CLI) | payer MEDICARE, MEDICAID, SELFPAY ==
--- NOTE | 2025-01-30 09:41 | XR_ITS ---
Examination: PA lateral chest 2 views TECHNIQUE: Upright PA lateral chest 2 views Date and time: January 30, 2025 1051 hours Comparison December 14, 2024 INDICATIONS: Chest pain beginning one month ago FINDINGS: Normal heart size. Lungs are clear. The osseous structures are intact IMPRESSION: No active disease
== END | disposition home or self-care (01) ==
PROVIDERS: PCP Physician Assistant; Referring Provider Physician Assistant; Visit Provider Physician Assistant
DX: R07.89 Other chest pain (principal)
CPT/HCPCS: 71046

== ENCOUNTER 2025-05-27 08:12 | Emergency (ER) | payer MEDICAID, MEDICARE, SELFPAY ==
[2025-05-27 08:23] VITALS: BP 105/75; PULSE 81; RESP 16; TEMP 36.6; O2SAT 99
--- NOTE | 2025-05-27 08:25 | XR_ITS ---
Examination: CT lumbar spine, without contrast. 2-D sagittal reconstructions. 2-D coronal reconstructions. 3-D reconstructions. Date and time of exam:May 27, 2025, 1101 hours INDICATIONS: Onset lower back pain beginning yesterday after working out CTDI: vol (mGy):35.8 DLP: (mGycm):1181 Technique: Multiple 1.25 mm axial sections of the lumbar spine without intravenous contrast have been obtained. 2-D sagittal and coronal reconstructions have been obtained. 3-D reconstructions have been obtained. Low dose protocols were performed. One or more of the following dose reduction techniques were used; automated exposure control, adjustment of the mA and/or KV according to patient size, use of iterative reconstruction technique. Findings: Adequate alignment lumbar vertebral bodies No lumbar compression fracture No spondylolisthesis Lumbar pedicles, laminae, transverse and posterior spinous processes appear intact L5-S1 4 mm central lumbar disc bulge contiguous with both right and left S1 nerve roots L4-L5 6 mm central lumbar disc bulge indenting the ventral margin thecal sac displacing the right and left L5 nerve roots More cephalad levels are unremarkable IMPRESSION: No lumbar fracture L5-S1 4 mm central lumbar disc bulge contiguous with both right and left S1 nerve roots L4-L5 6 mm central lumbar disc bulge indenting the ventral margin thecal sac and displacing the right and left L5 nerve roots ELECTIVE MRI lumbar spine follow-up would be preferable in assessing full extent of acquired soft tissue spinal stenosis
[2025-05-27 09:23] LABS: Collection Type, Urine Clean Catch
[2025-05-27 09:30] LABS: HCG Qualitative,Urine Negative
[2025-05-27 09:34] LABS: Bilirubin,Urine Negative (Negative); Blood,Urine Negative (Negative); Clarity,Urine Clear (Clear/Hazy); Color,Urine Lt-Yellow (Lt Yel-Yel); Culture Indicated,Urine Not Indicated; Glucose, Urine 4+ (Negative); Ketones,Urine Trace (Negative); Leukocyte Esterase,Urine Negative (Negative); Nitrite,Urine Negative (Negative); PH,Urine 5.5 (5.0-7.0); Protein,Urine Negative (Neg - Trace); RBC,Urine 3 /hpf (0-3); Specific Gravity,Urine 1.043 (1.001-1.035); Squamous Epithelial Cell,Urine 1 /hpf (0-5); Urobilinogen,Urine Negative mg/dL (0.0-1.0); WBC,Urine 3 /hpf (0-5)
[2025-05-27] MEDS: DIAZEPAM 5 MG TABLET 10 MG PO (09:47)
[2025-05-27] MEDS: KETOROLAC INJ 30 MG/ML VIAL IM (09:48)
--- NOTE | 2025-05-27 11:56 | PD.EDLOWEX ---
Lower Extremity Injury RME/HPI General Chief Complaint: Back Pain/Injury Stated Complaint: LOWER BACK PAIN RADIATING DOWN L) LEG Time Seen by Provider: 05/27/25 08:24 Arrival date/time: 05/27/25 08:12 39-year-old female with history of acute on chronic back pain presents to the Emergency Department today for complaint of lower back pain patient ports pain in her left lower back rating down her left leg patient denies any saddle anesthesia or loss of bowel or bladder patient where she is not Limitations: no limitations Related Data Previous Rx's ?Medication ?Instructions ?Recorded albuterol sulfate 90 mcg/actuation 2 puff inhalation QID #18 grams 06/30/20 aerosol inhaler azithromycin 250 mg tablet See Rx Instructions PO .COMPLEX #6 06/30/20 tabs promethazine 6.25 mg-codeine 10 5 ml PO Q6H #120 mL 06/30/20 mg/5 mL syrup naproxen 500 mg tablet (Naprosyn) 500 mg PO BID #30 tabs 01/06/22 ondansetron HCl 4 mg tablet 4 mg PO BID PRN nausea and 01/06/22 vomiting #20 tabs azelastine 137 mcg (0.1 %) nasal 2 spray intranasal QDAY #30 mL 02/26/22 spray acetaminophen 500 mg tablet 1,000 mg (2 x 500 mg) PO Q6H PRN 10/24/22 (Tylenol Extra Strength) fever or pain #30 tabs ondansetron HCl 4 mg tablet 4 mg PO TID PRN nausea and 10/24/22 vomiting #14 tabs ibuprofen 600 mg tablet 600 mg PO TID PRN pain #10 tabs 11/23/22 ondansetron 4 mg disintegrating 4 mg PO Q8H PRN nausea and 02/08/24 tablet vomiting #30 tabs gabapentin 100 mg capsule 100 mg PO TID PRN nerve pain #20 08/03/24 caps gabapentin 100 mg capsule 100 mg PO TID PRN nerve pain #20 08/03/24 caps naproxen 500 mg tablet (Naprosyn) 500 mg PO BID PRN pain #20 tabs 08/03/24 naproxen 500 mg tablet,delayed 500 mg PO BID PRN pain #20 tabs 08/03/24 release cyclobenzaprine 10 mg tablet 10 mg PO BID #14 tabs 01/06/25 cyclobenzaprine 10 mg tablet 10 mg PO TID PRN muscle spasm 10 05/27/25 days #30 tab-caps hydrocodone 5 mg-acetaminophen 325 1 tab PO BID PRN pain #10 tabs 05/27/25 mg tablet ibuprofen 800 mg tablet 800 mg PO TID PRN pain #30 tabs 05/27/25 Allergies Allergy/AdvReac Type Severity Reaction Status Date / Time Penicillins Allergy Severe Hives Verified 05/27/25 08:17 Review of Systems Review of Systems Systems Reviewed: All systems reviewed, normal except as documented Constitutional Constitutional: Reports system reviewed and no additional complaints, except as documented, Denies fever(s) and Denies headache(s) Eyes Eyes: Reports system reviewed and no additional complaints, except as documented and Denies blurry vision ENT Ears, Nose, Mouth, and Throat: Reports system reviewed and no additional complaints, except as documented, Denies headache(s), Denies nasal congestion and Denies nasal discharge Cardiovascular Cardiovascular: Reports system reviewed and no additional complaints, except as documented, Denies chest pain and Denies dyspnea Respiratory Respiratory: Reports system reviewed and no additional complaints, except as documented, Denies chest congestion, Denies cough and Denies dyspnea Gastrointestinal Gastrointestinal: Reports system reviewed and no additional complaints, except as documented and Denies abdominal pain Musculoskeletal Musculoskeletal: Reports system reviewed and no additional complaints, except as documented and Reports back pain Integumentary/Breasts Skin/Breast: Reports system reviewed and no additional complaints, except as documented and Denies rash Neurologic Neurologic: Reports system reviewed and no additional complaints, except as documented, Reports as per HPI and Denies headache(s) Past Medical History Past Medical History NEUROLOGIC: Negative Neurological Disorders CARDIAC: Negative Cardiac Disorders or Congestive Heart Failure RESPIRATORY: Negative Chronic Obstructive Pulmonary Disease (COPD) or Asthma GASTROINTESTINAL: Negative Gastrointestinal Disorders GENITOURINARY: Negative Genitourinary Disorders or Renal Disease REPRODUCTIVE: Negative Breast Cancer MUSCULOSKELETAL: Negative Musculoskeletal Disorders ENDOCRINE: Positive Diabetes Mellitus Type 2; Negative Diabetes Mellitus Type 1 HEMATOLOGIC: Negative Sickle Cell Disease OTHER HISTORY: Negative Breast Cancer Surgical History SURGICAL: Positive Section Social History SMOKING STATUS: Former smoker ED Exam General Limitations: Present no limitations General appearance: Present alert and in no apparent distress Head Head exam: Present atraumatic, normocephalic and normal inspection Eye Eye exam: Present normal appearance, PERRL and EOMI; Absent conjunctival injection ENT ENT exam: Present normal exam, normal oropharynx and mucous membranes moist Neck Neck exam: Present normal inspection, full ROM and trachea midline Chest Chest inspection: Present normal inspection and symmetric chest wall rise Respiratory Respiratory exam: Present normal lung sounds bilaterally; Absent respiratory distress Cardiovascular Cardiovascular exam: Present regular rate, normal rhythm and normal heart sounds Abdominal Exam Abdominal exam: Present soft and normal bowel sounds; Absent distention, tenderness, guarding, rebound or rigidity Extremities Exam Extremities exam: Present normal inspection and full ROM Back Exam Back exam: Present normal inspection and full ROM Neurological Exam Neurological exam: Present alert, oriented X3 and CN II-XII intact Psychiatric Psychiatric exam: Present normal affect and normal mood Skin Skin exam: Present warm, dry, intact and normal color Course Quality Measures none Orders Category Date Time Status CT lumbar spine wo con Stat Exams 05/27/25 08:25 Completed HCG Qualitative,Urine Stat Lab 05/27/25 09:05 Completed UA, C/S IF [Urinalysis, C/S if Indicated] Stat Lab 05/27/25 09:05 Completed Diazepam [Valium] Med 05/27/25 08:25 Discontinued 10 mg PO X1 ONE Ketorolac Inj [Toradol Inj] Med 05/27/25 08:25 Discontinued 30 mg IM X1 ONE Vital Signs Vital signs: Vital Signs Temperature 97.8 F 05/27/25 08:23 Pulse Rate 81 05/27/25 08:23 Respiratory Rate 16 05/27/25 08:23 Blood Pressure 105/75 05/27/25 08:23 Pulse Oximetry (%) 99 05/27/25 08:23 Oxygen Delivery Method Room Air 05/27/25 08:23 O2 saturation yeah 99% r.a wnl Extremity Injury, Lower MDM Narrative MDM Narrative:: 39-year-old female with history of acute on chronic back pain presents to the Emergency Department today for complaint of lower back pain patient ports pain in her left lower back rating down her left leg patient denies any saddle anesthesia or loss of bowel or bladder patient where she is not On exam patient well-appearing patient does not appear ill or toxic no acute distress Imaging obtained and reviewed with the patient patient given copy of her CT report instructed have an outpatient MRI Patient was medicated here which improved her symptoms Patient discharged home in no distress to follow-up with primary care doctor in the next 24 to 48 hours and for any worsening symptoms to return to the ER immediately Patient data External records reviewed:: [facility] previous records Clinical information provided by:: patient Social determinants that could affect healthcare access:: none Patient has the following chronic illnesses:: None How is presenting disease/condition affected by chronic disease/condition?: no chronic disease Evaluation data The following diagnostics were reviewed and interpreted by me:: radiology exam(s) Lab and/or radiology exams considered but not ordered:: Radiology obtained Interpretation Summary: Reviewed by Medications / Prescriptions Medications or Prescriptions considered but not ordered:: Given Medication administrations:: Medication Administration History Discontinued Medications Diazepam (Diazepam 5 Mg Tablet) 10 mg PO X1 ONE Stop: 05/27/25 08:26 Last Admin: 05/27/25 09:47 Dose: 10 mg Documented By: OA Ketorolac Tromethamine (Ketorolac Inj 30 Mg/Ml Vial) 30 mg IM X1 ONE Stop: 05/27/25 08:26 Last Admin: 05/27/25 09:48 Dose: 30 mg Documented By: OA Given Consultations Consultation(s) initiated? (list below): No Diagnosis Extremity Injury, Lower Differential Diagnosis: other (Radiculopathy, lumbar sprain DDD, DJD) Most likely diagnosis given after review of the tests above:: Lumbar radiculopathy Admission Indicated Admission indicated?: not indicated Admission Request Was there a request for admission?: No Disposition Plan Disposition Plan: Discharge Discharge Attestation Discharge Attestation: The patient and all family members were given an opportunity to ask questions and understood the discharge instructions. Discharge instructions specifically effects, indications for sooner follow up or return to the emergency department, and the expected course of current diagnosis. Patient condition: Stable Discharge Plan Plan Patient Disposition: HOME (Self Care) Discharge Disposition comment: Stable Prescriptions/Referrals Prescriptions/Med Rec: New cyclobenzaprine 10 mg tablet 10 mg PO TID PRN (Reason: muscle spasm) 10 Days Qty: 30 0RF ibuprofen 800 mg tablet 800 mg PO TID PRN (Reason: pain) Qty: 30 0RF hydrocodone-acetaminophen 5-325 mg tablet 1 tab PO BID MDD 10 PRN (Reason: pain) Qty: 10 0RF No Action naproxen [Naprosyn] 500 mg tablet 500 mg PO BID Qty: 30 0RF ondansetron HCl 4 mg tablet 4 mg PO BID PRN (Reason: nausea and vomiting) Qty: 20 0RF azelastine 137 mcg (0.1 %) aerosol,spray 2 spray intranasal QDAY Qty: 30 0RF Rx Instructions: administer into each nostril azithromycin 250 mg tablet See Rx Instructions .ROUTE .COMPLEX Qty: 6 0RF Rx Instructions: take 500 mg today (day 1), then 250 mg for 4 days (days 2-5) albuterol sulfate 90 mcg/actuation HFA aerosol inhaler 2 puff inhalation QID Qty: 18 0RF promethazine-codeine 6.25-10 mg/5 mL syrup 5 ml PO Q6H Qty: 120 0RF naproxen 500 mg tablet,delayed release (DR/EC) 500 mg PO BID PRN (Reason: pain) Qty: 20 0RF gabapentin 100 mg capsule 100 mg PO TID PRN (Reason: nerve pain ) Qty: 20 0RF gabapentin 100 mg capsule 100 mg PO TID PRN (Reason: nerve pain) Qty: 20 0RF naproxen [Naprosyn] 500 mg tablet 500 mg PO BID PRN (Reason: pain) Qty: 20 0RF acetaminophen [Tylenol Extra Strength] 500 mg tablet 1,000 mg PO Q6H PRN (Reason: fever or pain) Qty: 30 0RF ondansetron HCl 4 mg tablet 4 mg PO TID PRN (Reason: nausea and vomiting) Qty: 14 0RF ibuprofen 600 mg tablet 600 mg PO TID PRN (Reason: pain) Qty: 10 0RF ondansetron 4 mg tablet,disintegrating 4 mg PO Q8H PRN (Reason: nausea and vomiting) Qty: 30 0RF cyclobenzaprine 10 mg tablet 10 mg PO BID Qty: 14 0RF Referrals: Vickie Rosen PA-C [Primary Care Provider] - In 1 week Problem List Clinical Impression: Lumbar radiculopathy Patient/Caregiver Discharge Instructions Additional Instructions: Please follow up with your primary care doctor in the next 24-48hrs for any worsening symptoms return here immediately Please bring copy of your CT report to your primary care doctor request outpatient MRI for emergent concerns return immediately Print Language: Divehi Stand Alone Forms: Irish Award Info., Patient Portal Info Letter PA/PARACHUTE CUSHION INSTALLER Supervising Physician PA/BRITTNY Supervising Physician: Dr. fuller
== END 2025-05-27 12:44 | disposition home or self-care (01) ==
PROVIDERS: Emergency Provider Nurse Practitioner Primary Care; PCP Physician Assistant
DX: M54.16 Radiculopathy, lumbar region (principal)
CPT/HCPCS: 72131; 81001; 81025; 96372; 99283; J1885; A9270

== ENCOUNTER 2025-06-12 18:06 | Emergency (ER) | payer MEDICARE, MEDICAID, SELFPAY ==
[2025-06-12 19:01] VITALS: BP 140/91; PULSE 98; RESP 16; TEMP 37.2; O2SAT 98; BMI 38.7
[2025-06-12] MEDS: DEXAMETHASONE SOD PHOS INJ 10 MG/ML VIAL PO (19:10)
--- NOTE | 2025-06-12 19:11 | EDNOTE_ITS ---
ED Ear RME/HPI General Chief complaint: Ear Stated complaint: SOMETHING IN L) EAR, DIZZY Time Seen by Provider: 06/12/25 19:05 Arrival date/time: 06/12/25 18:06 39F with history of DM presents to ED with L ear fullness and reduced hearing. PCP has been treating with ABX drops w/o relief. Limitations: no limitations Related Data Previous Rx's ?Medication ?Instructions ?Recorded albuterol sulfate 90 mcg/actuation 2 puff inhalation Q ID #18 grams 06/30/20 aerosol inhaler azithromycin 250 mg tablet See Rx Instructions PO .COM PLEX #6 06/30/20 tabs promethazine 6.25 mg-codeine 10 5 ml PO Q6H #120 mL mg/5 mL syrup naproxen 500 mg tablet (Naprosyn) 500 mg PO BID #30 ta bs 01/06/22 ondansetron HCl 4 mg tablet 4 mg PO BID PRN nausea and 01/06/22 vomiting #20 tabs azelastine 137 mcg (0.1 %) nasal 2 spray intranasal QD AY #30 mL 02/26/22 spray acetaminophen 500 mg tablet 1,000 mg (2 x 500 mg) PO Q 6H PRN 10/24/22 (Tylenol Extra Strength) fever or pain #30 tabs ondansetron HCl 4 mg tablet 4 mg PO TID PRN nausea and 10/24/22 vomiting #14 tabs ibuprofen 600 mg tablet 600 mg PO TID PRN pain #10 t abs 11/23/22 ondansetron 4 mg disintegrating 4 mg PO Q8H PRN nausea and 02/08/24 tablet vomiting #30 tabs gabapentin 100 mg capsule 100 mg PO TID PRN nerve pain #20 08/03/24 caps gabapentin 100 mg capsule 100 mg PO TID PRN nerve pain #20 08/03/24 caps naproxen 500 mg tablet (Naprosyn) 500 mg PO BID PRN pa in #20 tabs 08/03/24 naproxen 500 mg tablet,delayed 500 mg PO BID PRN pain #20 tabs 08/03/24 release cyclobenzaprine 10 mg tablet 10 mg PO BID #14 tabs 02/25 hydrocodone 5 mg-acetaminophen 325 1 tab PO BID PRN pa in #10 tabs 09/24/25 mg tablet ibuprofen 800 mg tablet 800 mg PO TID PRN pain #30 t abs 05/27/25 Allergies Allergy/AdvReac Type Severity Reaction Status Date / Time Penicillins Allergy Severe Hives Verified 06/12/25 18:09 Review of Systems Review of Systems Systems Reviewed: All systems reviewed, normal except as documented ENT Ears, Nose, Mouth, and Throat: Reports as per HPI, Reports hearing loss (reduced) and Reports other (ear fullness) Past Medical History Past Medical History NEUROLOGIC: Negative Neurological Disorders CARDIAC: Negative Cardiac Disorders or Congestive Heart Failure RESPIRATORY: Negative Chronic Obstructive Pulmonary Disease (COPD) or Asthma GASTROINTESTINAL: Negative Gastrointestinal Disorders GENITOURINARY: Negative Genitourinary Disorders or Renal Disease REPRODUCTIVE: Negative Breast Cancer MUSCULOSKELETAL: Negative Musculoskeletal Disorders ENDOCRINE: Positive Diabetes Mellitus Type 2; Negative Diabetes Mellitus Type 1 HEMATOLOGIC: Negative Sickle Cell Disease OTHER HISTORY: Negative Breast Cancer Surgical History SURGICAL: Positive Section Social History SMOKING STATUS: Never smoker ED Exam General Limitations: Present no limitations General appearance: Present alert and in no apparent distress Head Head exam: Present atraumatic ENT ENT exam: Present mucous membranes moist Expanded ENT Exam TM/Canal exam: Left TM: bulging and effusion Neck Neck exam: Present normal inspection, full ROM and trachea midline Chest Chest inspection: Present normal inspection and symmetric chest wall rise Neurological Exam Neurological exam: Present alert and oriented X3 Psychiatric Psychiatric exam: Present normal affect and normal mood Skin Skin exam: Present warm, dry, intact and normal color Course Quality Measures none Orders Category Date Time Status Dexamethasone Inj [Decadron Inj] Med 06/12/25 19:05 Discontinued 10 mg PO X1 ONE Vital Signs Vital signs: Vital Signs Temperature 98.9 F 06/12/25 19:01 Pulse Rate 98 06/12/25 19:01 Respiratory Rate 16 06/12/25 19:01 Blood Pressure 140/91 H 06/12/25 19:01 Pulse Oximetry (%) 98 06/12/25 19:01 Oxygen Delivery Method Room Air 06/12/25 19:01 O2 at 98% on RA and WNLs Ear MDM Narrative MDM Narrative:: 39F with history of DM presents to ED with L ear fullness and reduced hearing. PCP has been treating with ABX drops w/o relief. Physical exam reveals bulging and effusion behind L TM. Ear canal normal with no tragal tenderness. Patient is afebrile, calm, and alert. Meds and drug abuse counselor given. Patient data External records reviewed:: [facility] previous records Clinical information provided by:: patient Social determinants that could affect healthcare access:: none Patient has the following chronic illnesses:: none How is presenting disease/condition affected by chronic disease/condition?: no chronic disease Evaluation data The following diagnostics were reviewed and interpreted by me:: other (specify) (none) Lab and/or radiology exams considered but not ordered:: not ordered Interpretation Summary: n/a Medications / Prescriptions Medications or Prescriptions considered but not ordered:: ordered Medication administrations:: Medication Administration History Discontinued Medications Dexamethasone Sodium Phosphate (Dexamethasone Sod Phos Inj 10 Mg/Ml Vial) 10 mg PO X1 ONE Stop: 06/12/25 19:06 Last Admin: 06/12/25 19:10 Dose: 10 mg Documented By: OLIVIA Comments: given po above Consultations Consultation(s) initiated? (list below): No Diagnosis Ear Differential Diagnosis: otitis externa, otitis media (serous), foreign body in ear, ruptured TM and cerumen impaction Most likely diagnosis given after review of the tests above:: serous OM Admission Indicated Admission indicated?: not indicated Admission Request Was there a request for admission?: No Disposition Plan Disposition Plan: Discharge Discharge Attestation Discharge Attestation: The patient and all family members were given an opportunity to ask questions and understood the discharge instructions. Discharge instructions specifically effects, indications for sooner follow up or return to the emergency department, and the expected course of current diagnosis. Patient condition: Stable Discharge Plan Plan Patient Disposition: HOME (Self Care) Discharge Disposition comment: Stable Prescriptions/Referrals Prescriptions/Med Rec: No Action naproxen [Naprosyn] 500 mg tablet 500 mg PO BID Qty: 30 0RF ondansetron HCl 4 mg tablet 4 mg PO BID PRN (Reason: nausea and vomiting) Qty: 20 0RF azelastine 137 mcg (0.1 %) aerosol,spray 2 spray intranasal QDAY Qty: 30 0RF Rx Instructions: administer into each nostril azithromycin 250 mg tablet See Rx Instructions .ROUTE .COMPLEX Qty: 6 0RF Rx Instructions: take 500 mg today (day 1), then 250 mg for 4 days (days 2-5) albuterol sulfate 90 mcg/actuation HFA aerosol inhaler 2 puff inhalation QID Qty: 18 0RF promethazine-codeine 6.25-10 mg/5 mL syrup 5 ml PO Q6H Qty: 120 0RF naproxen 500 mg tablet,delayed release (DR/EC) 500 mg PO BID PRN (Reason: pain) Qty: 20 0RF gabapentin 100 mg capsule 100 mg PO TID PRN (Reason: nerve pain ) Qty: 20 0RF gabapentin 100 mg capsule 100 mg PO TID PRN (Reason: nerve pain) Qty: 20 0RF naproxen [Naprosyn] 500 mg tablet 500 mg PO BID PRN (Reason: pain) Qty: 20 0RF acetaminophen [Tylenol Extra Strength] 500 mg tablet 1,000 mg PO Q6H PRN (Reason: fever or pain) Qty: 30 0RF ondansetron HCl 4 mg tablet 4 mg PO TID PRN (Reason: nausea and vomiting) Qty: 14 0RF ibuprofen 600 mg tablet 600 mg PO TID PRN (Reason: pain) Qty: 10 0RF ondansetron 4 mg tablet,disintegrating 4 mg PO Q8H PRN (Reason: nausea and vomiting) Qty: 30 0RF cyclobenzaprine 10 mg tablet 10 mg PO BID Qty: 14 0RF ibuprofen 800 mg tablet 800 mg PO TID PRN (Reason: pain) Qty: 30 0RF hydrocodone-acetaminophen 5-325 mg tablet 1 tab PO BID MDD 10 PRN (Reason: pain) Qty: 10 0RF Problem List Clinical Impression: Serous otitis media Patient/Caregiver Discharge Instructions Education Materials: Anatomy of the Ear Additional Instructions: Please follow-up with PCP within 24-48 hours and return immediately if symptoms worsen. Take OTC antihistamine as needed until symptoms resolve. Steroids can increase your sugars, so check it more frequently for the next few days. Print Language: Tristanian Stand Alone Forms: Patient Portal Info Letter PA/OBSTETRICAL ANESTHESIOLOGIST Supervising Physician PA/BRITTNY Supervising Physician: Dr. Fraser
== END 2025-06-12 19:11 | disposition home or self-care (01) ==
LOC: SERX 19:12
PROVIDERS: Emergency Provider Emergency Medicine
DX: H65.92 Unspecified nonsuppurative otitis media, left ear (principal); E11.9 Type 2 diabetes mellitus without complications
CPT/HCPCS: 99283; J1100

== ENCOUNTER → 2025-08-25 | Outpatient (CLI) | payer MEDICARE, MEDICAID, SELFPAY ==
--- NOTE | 2025-08-25 14:45 | XR_ITS ---
Examination: Screening digital mammography, bilateral Computer aided detection 3-D breast Tomosynthesis, bilateral Date and time of exam: August 25, 2025, 1443 hours, no priors Indication: Screening Technique: Nonmagnified MLO, CC views of the breasts to been obtained, reconstructed from 3-D Tomosynthesis images. R2 computer aided detection program utilized for evaluation of suspicious masses and/or abnormal calcifications. 3-D Tomosynthesis images obtained. Findings: Scattered areas of fibroglandular density. Skin lesion left breast Benign calcifications No suspicious masses Impression: BI-RADS category II: Benign Findings. Recommend 1 year follow-up mammogram.
== END | disposition home or self-care (01) ==
PROVIDERS: PCP Physician Assistant; Referring Provider Physician Assistant; Visit Provider Physician Assistant
DX: Z12.31 Encounter for screening mammogram for malignant neoplasm of breast (principal); R92.323 Mammographic fibroglandular density, bilateral breasts; R92.1 Mammographic calcification found on diagnostic imaging of breast
CPT/HCPCS: 77063; 77067